=== PATIENT | female | born 1995 | race Caucasian/White ===

== ENCOUNTER 2017-07-27 01:43 | Emergency (ER) | payer BC, OTHER ==
[2017-07-27 03:47] LABS: PLATELET COUNT 284 10^3/uL (150-400)
--- NOTE | 2017-07-27 04:33 | EDPHY ---
H & P Stated Complaint: reports a full body rash that has gone away and r knee swelling Time Seen by Provider: 07/27/17 03:09 HPI/ROS: HPI The patient presents with rash throughout her extremities which has now resolved lasting for about 30 min and itchy in nature. She says she has been sick for the last 3 weeks with cough, congestion, rhinorrhea, without fever. Today she had taken some ibuprofen and possibly DayQuil. She denies any other new exposures. She is also complaining of right knee pain for the last 1 day which has been intermittent, worse when she bends her knee with no overlying skin changes.. REVIEW OF SYSTEMS Constitutional: No fever, no chills. Eyes: No discharge. ENT: No sore throat. Cardiovascular: No chest pain, no palpitations. Respiratory: No cough, no shortness of breath. Gastrointestinal: No abdominal pain, no vomiting. Genitourinary: No hematuria. Musculoskeletal: No back pain. Skin: No rashes. Neurological: No headache. PMHx: IBS Soc Hx: Prior [facility] student PHYSICAL General Appearance: Alert, no distress Eyes: Pupils equal and round no pallor or injection ENT, Mouth: Mucous membranes moist, posterior pharynx appears normal Respiratory: There are no retractions, lungs are clear to auscultation Cardiovascular: Regular rate and rhythm Gastrointestinal: Abdomen is soft and non-tender, no masses, bowel sounds normal Neurological: A&O, moves all extremities Skin: Warm and dry, no rashes Musculoskeletal: Neck is supple non tender Extremities: symmetrical, full range of motion , right knee tenderness at the lateral joint line, no effusion, no overlying skin changes Psychiatric: Patient is oriented X 3, there is no agitation Source: Patient Exam Limitations: No limitations - Personal History LMP (Females 10-55): IUD In Place Current Tetanus/Diphtheria Vaccine: Yes Current Tetanus Diphtheria and Acellular Pertussis (TDAP): Yes - Medical/Surgical History Hx Asthma: No Hx Chronic Respiratory Disease: No Hx Diabetes: No Hx Cardiac Disease: No Hx Renal Disease: No Hx Cirrhosis: No Hx Alcoholism: No Hx HIV/AIDS: No Hx Splenectomy or Spleen Trauma: No Other PMH: ovarian cyst. ulcerative colitis. ibs - Social History Smoking Status: Current some day smoker Constitutional: Initial Vital Signs Temperature (C) 37.0 C 07/27/17 01:50 Heart Rate 92 07/27/17 01:50 Respiratory Rate 18 07/27/17 01:50 Blood Pressure 153/87 H 07/27/17 01:50 O2 Sat (%) 95 07/27/17 01:50 O2 Delivery Mode Room Air Allergies/Adverse Reactions: aloe Allergy (Verified 07/27/17 02:00) Sulfa (Sulfonamide Antibiotics) Allergy (Verified 07/27/17 02:00) Home Medications: Medication Instructions Recorded NK [No Known Home Meds] 07/27/17 Medical Decision Making Differential Diagnosis: 21-year-old female presents with URI type symptoms for several weeks, now with right knee pain, transient rash now resolved. By description, the rash sounds to be urticarial in nature. The cause of this is unclear. As she has taken ibuprofen and DayQuil today and that is a consideration. She denies any other new exposures. In regards to her right knee pain she may have a very small effusion, however her exam is quite unremarkable. In the setting of these URI type symptoms, I will check mono and basic labs. In the emergency department, the patient was monitored, she had no recurrence of her rash. Her vital signs were normal. Labs are unremarkable. She was discharged home. I have given her follow-up information for outpatient primary care. - Data Points Laboratory Results: Laboratory Results 07/27/17 03:40 07/27/17 03:40 Departure - Departure Disposition: Home, Routine, Self-Care Clinical Impression: URI (upper respiratory infection), Knee pain, right, Rash Condition: Good Instructions: Urticaria (ED), Upper Respiratory Infection (ED) Additional Instructions: If your rash returns, I recommend you take Benadryl. Otherwise I have given you the name of a primary care doctor whom you can follow up within the next few days. Referrals: Meet Ramirez, DO [Medical Doctor] - As per Instructions
[2017-07-27 04:39] VITALS: BP 126/67
== END 2017-07-27 04:39 | disposition home or self-care (01) ==
DX: R21 Rash and other nonspecific skin eruption (principal); J06.9 Acute upper respiratory infection, unspecified; M25.561 Pain in right knee; F17.200 Nicotine dependence, unspecified, uncomplicated